=== PATIENT | female | born 1960 | race Caucasian/White ===

== ENCOUNTER 2017-09-02 22:57 | Inpatient (IN) | payer MEDICARE, MEDICAID ==
[~2017-09-02] VITALS: Ht 167.6 cm; Wt 100.5 kg
[~2017-09-02 22:57] MED LIST: ACET-784 PO; ASPI-825 PO; BACL10TA PO; BISA10SU61 PR; CLOP75 PO; FEP PR; INSLAN SQ; LISI10TA PO; MAGN800O PO; METO25 PO; SIMV40TA5 PO; VICOT PO
[2017-09-02 23:23] LABS: GLUCOSE,POINT OF CARE 128 MG/DL (70-110)
[2017-09-02] MEDS ORDERED: ALBU2TAB42 PO (23:23)
[2017-09-02] MEDS ORDERED: GABA-529 PO (23:23)
[2017-09-02] MEDS ORDERED: HYDR25TA84 PO (23:23)
[2017-09-02] MEDS ORDERED: AMLO-511 PO (23:23)
[2017-09-02] MEDS ORDERED: PHOSLOC PO (23:23)
[2017-09-02] MEDS ORDERED: LINA72CA PO (23:23)
[2017-09-02] MEDS ORDERED: LEVO75 PO (23:23)
[2017-09-02] MEDS ORDERED: AMIO200T44 PO (23:23)
[2017-09-02] MEDS ORDERED: CARV3 PO (23:23)
[2017-09-02] MEDS ORDERED: ATOR40TA28 PO (23:23)
[2017-09-02] MEDS ORDERED: MINO2.5 PO (23:30)
[2017-09-02] MEDS ORDERED: OMEP20 PO (23:30)
[2017-09-02] MEDS ORDERED: LUBI24CA2 PO (23:30)
[2017-09-02] MEDS ORDERED: NITR.4 SL (23:30)
[2017-09-02] MEDS ORDERED: MECL12.585 PO (23:30)
[2017-09-02] MEDS ORDERED: SEVEC800 PO (23:30)
[2017-09-02] MEDS ORDERED: HYDR-305 PO (23:30)
[2017-09-02] MEDS ORDERED: SENN8.6T52 PO (23:30)
[2017-09-02] MEDS ORDERED: NIFE30TA5 PO (23:30)
[2017-09-02] MEDS ORDERED: FOLI0.8T2 PO (23:30)
[2017-09-02] MEDS ORDERED: TRAM50TA4 PO (23:30)
[2017-09-02 23:37] LABS: BASOPHILS % (AUTO) 0.4 % (0.0-2.0); EOSINOPHILS % (AUTO) 0.9 % (1.0-6.0); HEMATOCRIT 29.6 % (36-46); HEMOGLOBIN 9.9 g/dL (12.0-16.0); LYMPHOCYTES # (AUTO) 1.3 K/uL (1.0-4.8); LYMPHOCYTES % (AUTO) 22.6 % (22.0-44.0); MEAN CORPUSCULAR HEMOGLOBIN 31.3 pg (26.0-34.0); MEAN CORPUSCULAR HGB CONC 33.4 G/dL (31.0-37.0); MEAN CORPUSCULAR VOLUME 94 fL (80-100); MONOCYTES # (AUTO) 0.4 K/uL (0.1-1.0); MONOCYTES % (AUTO) 7.8 % (2.0-9.0); NEUTROPHILS # (AUTO) 3.9 K/uL (1.8-7.7); NEUTROPHILS % (AUTO) 68.3 % (40.0-70.0); PLATELET COUNT (AUTO) 210 K/uL (150-450); RED BLOOD CELL COUNT(AUTO) 3.16 MIL/uL (4.00-5.20); RED CELL DISTRIBUTION WIDTH 14.3 % (11.5-14.5); WHITE BLOOD COUNT (AUTO) 5.7 K/uL (4.5-11.0)
[2017-09-02 23:48] LABS: CALCIUM, TOTAL 8.6 mg/dL (8.8-10.5); CREATININE 3.68 mg/dL (0.60-1.30); POTASSIUM 4.3 mmol/L (3.5-5.1)
[2017-09-02 23:54] LABS: ALBUMIN 3.1 g/dL (3.4-5.0); BILIRUBIN,TOTAL 0.3 mg/dL (0.1-1.0); TOTAL PROTEIN, SERUM 6.5 g/dL (6.4-8.2)
[2017-09-03] MEDS ORDERED: MORPHINE SULFATE 2 MG/ML SYRINGE IVP ONE
[2017-09-03] MEDS ORDERED: METOPROLOL TARTRATE 5 MG/5 ML VIAL IVP ONE
[2017-09-03] MEDS ORDERED: NITROGLYCERIN 0.4 MG SUBLINGUAL TABLET #25 SL ONE
[2017-09-03] MEDS ORDERED: NITROGLYCERIN 2% (1 GM=INCH) PACKET TP ONE
[2017-09-03] MEDS: ONDANSETRON HCL 4 MG/2 ML VIAL IVP ONE ×2 (00:34→00:38)
[2017-09-03] MEDS ORDERED: HYDROmorphone 2 MG/ML SYRINGE IVP ONE (01:30)
[2017-09-03 01:55] LABS: INR 1.1 (0.9-1.1); PROTHROMBIN TIME 11.7 SEC (9.4-11.6)
[2017-09-03] MEDS ORDERED: LORazepam 2 MG/ML VIAL IVP ONE (03:15)
[2017-09-03] MEDS ORDERED: NITROGLYCERIN 0.4 MG SUBLINGUAL TABLET #25 SL PRN (04:00)
[2017-09-03] MEDS ORDERED: ALBUTEROL SULFATE 2.5 MG/0.5 ML NEB SOLUTION NEB PRN (04:00)
[2017-09-03] MEDS ORDERED: MORPHINE SULFATE 4 MG/ML SYRINGE IVP PRN (04:00)
[2017-09-03] MEDS ORDERED: HEPARIN SODIUM,PORCINE 5,000 UNITS/ML VIAL SQ SCH (04:00)
[2017-09-03] MEDS ORDERED: ZOLPIDEM TARTRATE 5 MG TABLET PO PRN (04:00)
[2017-09-03] MEDS ORDERED: BISACODYL 10 MG RECTAL RECTAL SUPPOSITORY PR PRN (04:00)
[2017-09-03] MEDS ORDERED: IPRATROPIUM BROMIDE 0.5 MG/2.5 ML NEB SOLUTION NEB PRN (04:00)
[2017-09-03] MEDS ORDERED: MAGNESIUM HYDROXIDE SUSPENSION 30 ML UDCUP PO PRN (04:00)
[2017-09-03] MEDS ORDERED: ACETAMINOPHEN 325 MG TABLET PO PRN (04:00)
[2017-09-03] MEDS ORDERED: DEXTROSE 50%-WATER 25 GM/50 ML SYRINGE IVP PRN (04:15)
[2017-09-03] MEDS ORDERED: ASPIRIN 325 MG TABLET PO ONE (04:45)
[2017-09-03] MEDS: METOPROLOL TARTRATE 25 MG TABLET PO SCH ×4 (06:00→23:40)
[2017-09-03] MEDS: NITROGLYCERIN 2% (1 GM=INCH) PACKET TP SCH ×4 (06:18→23:40)
[2017-09-03 06:49] LABS: BASOPHILS % (AUTO) 0.6 % (0.0-2.0); EOSINOPHILS % (AUTO) 2.4 % (1.0-6.0); HEMATOCRIT 26.4 % (36-46); LYMPHOCYTES # (AUTO) 1.4 K/uL (1.0-4.8); LYMPHOCYTES % (AUTO) 27.5 % (22.0-44.0); MEAN CORPUSCULAR HEMOGLOBIN 31.8 pg (26.0-34.0); MEAN CORPUSCULAR HGB CONC 33.9 G/dL (31.0-37.0); MEAN CORPUSCULAR VOLUME 94 fL (80-100); MONOCYTES # (AUTO) 0.4 K/uL (0.1-1.0); MONOCYTES % (AUTO) 8.4 % (2.0-9.0); NEUTROPHILS # (AUTO) 3.2 K/uL (1.8-7.7); NEUTROPHILS % (AUTO) 61.1 % (40.0-70.0); PLATELET COUNT (AUTO) 187 K/uL (150-450); RED BLOOD CELL COUNT(AUTO) 2.81 MIL/uL (4.00-5.20); RED CELL DISTRIBUTION WIDTH 14.7 % (11.5-14.5); WHITE BLOOD COUNT (AUTO) 5.2 K/uL (4.5-11.0)
[2017-09-03 07:18] LABS: ANION GAP 2 mmol/L (8-16); CALCIUM, TOTAL 8.1 mg/dL (8.8-10.5); CARBON DIOXIDE 32 mmol/L (22-29); CHLORIDE 102 mmol/L (98-107); CREATINE KINASE, TOTAL 44 U/L (26-192); CREATININE 3.91 mg/dL (0.60-1.30); GLOMERULAR FILTR. RATE CALC 12 mL/min (>60); POTASSIUM 4.3 mmol/L (3.5-5.1); SODIUM SERUM 136 mmol/L (136-145); THYROID STIMULATING HORMONE 4.34 uIU/mL (0.36-3.74); UREA NITROGEN, BLOOD 28 mg/dL (7-18)
[2017-09-03 07:29] LABS: HEMOGLOBIN A1C 5.7 % (4.5-6.2)
[2017-09-03] MEDS: CALCIUM ACETATE 667 MG CAPSULE PO SCH ×2 (08:00→11:44)
[2017-09-03] MEDS: VITAMIN B COMP/VIT C/FOLIC ACID CAPSULE PO SCH (09:00)
[2017-09-03] MEDS: LISINOPRIL 20 MG TABLET PO SCH (09:00)
[2017-09-03] MEDS: SEVELAMER CARBONATE 800 MG TABLET PO SCH ×3 (09:16→17:57)
[2017-09-03] MEDS: LEVOTHYROXINE SODIUM 75 MCG TABLET PO SCH (09:16)
[2017-09-03] MEDS: AMIODARONE HCL 200 MG TABLET PO SCH (09:17)
[2017-09-03] MEDS: PANTOPRAZOLE SODIUM 40 MG/VIAL IVP SCH (09:17)
[2017-09-03] MEDS: HEPARIN SODIUM,PORCINE 5,000 UNITS/ML VIAL SQ SCH ×2 (09:17→20:47)
[2017-09-03 09:33] VITALS: BP 167/76
[2017-09-03 09:45] VITALS: BP 167/76
[2017-09-03] MEDS ORDERED: PENTETATE DTPA TC99M/MCL ISOTOPE 1 EA INJ INJ ONE (10:25)
[2017-09-03] MEDS ORDERED: MAA ALBUMIN AGGREGATED TC99M/UD<10MCL ISOTOPE 1 EA INJ INJ ONE (10:40)
[2017-09-03] MEDS: GABAPENTIN 100 MG CAPSULE PO SCH ×3 (11:05→20:45)
[2017-09-03] MEDS: LINACLOTIDE 290 MCG CAPSULE PO SCH (11:05)
[2017-09-03 11:31] VITALS: BP 150/67
[2017-09-03 14:52] LABS: CREATINE KINASE, TOTAL 51 U/L (26-192)
[2017-09-03 15:43] VITALS: BP 158/71
[2017-09-03] MEDS ORDERED: SODIUM CHLORIDE 0.9% 2,000 ML IV ONE (17:52)
[2017-09-03 20:40] VITALS: BP 147/65
[2017-09-03 20:40] LABS: GLUCOSE,POINT OF CARE 137 MG/DL (70-110)
[2017-09-03] MEDS: SENNA 187 MG TABLET PO SCH (20:46)
[2017-09-03] MEDS: ATORVASTATIN CALCIUM 40 MG TABLET PO SCH (20:47)
[2017-09-03] MEDS: MORPHINE SULFATE 2 MG/ML SYRINGE IVP PRN (20:50)
[2017-09-03 23:29] VITALS: BP 150/70
[2017-09-04] VITALS (10 sets, daily range): BP systolic 131–195; BP diastolic 71–94
[2017-09-04] MEDS: LEVOTHYROXINE SODIUM 75 MCG TABLET PO SCH (05:50)
[2017-09-04] MEDS: METOPROLOL TARTRATE 25 MG TABLET PO SCH ×4 (05:50→23:35)
[2017-09-04] MEDS: NITROGLYCERIN 2% (1 GM=INCH) PACKET TP SCH ×4 (05:50→23:32)
[2017-09-04 05:58] LABS: GLUCOSE,POINT OF CARE 123 MG/DL (70-110)
[2017-09-04 05:58] LABS: GLUCOSE,POINT OF CARE 135 MG/DL (70-110)
[2017-09-04] MEDS: LINACLOTIDE 290 MCG CAPSULE PO SCH (06:21)
[2017-09-04 06:52] LABS: BASOPHILS # (AUTO) 0.04 K/uL (0.00-0.20); EOSINOPHILS # (AUTO) 0.09 K/uL (0.00-0.70); EOSINOPHILS % (AUTO) 1.94 % (1.0-6.0); HEMATOCRIT 26.1 % (36-46); HEMOGLOBIN 8.6 g/dL (12.0-16.0); LYMPHOCYTES # (AUTO) 1.2 K/uL (1.0-4.8); LYMPHOCYTES % (AUTO) 27.4 % (22.0-44.0); MEAN CORPUSCULAR HEMOGLOBIN 31.4 pg (26.0-34.0); MEAN CORPUSCULAR HGB CONC 32.8 G/dL (31.0-37.0); MEAN CORPUSCULAR VOLUME 95 fL (80-100); MONOCYTES # (AUTO) 0.4 K/uL (0.1-1.0); MONOCYTES % (AUTO) 8.1 % (2.0-9.0); NEUTROPHILS # (AUTO) 2.7 K/uL (1.8-7.7); NEUTROPHILS % (AUTO) 61.5 % (40.0-70.0); PLATELET COUNT (AUTO) 177 K/uL (150-450); RED BLOOD CELL COUNT(AUTO) 2.73 MIL/uL (4.00-5.20); RED CELL DISTRIBUTION WIDTH 14.6 % (11.5-14.5); WHITE BLOOD COUNT (AUTO) 4.4 K/uL (4.5-11.0)
[2017-09-04 07:09] LABS: ALBUMIN 2.6 g/dL (3.4-5.0); BILIRUBIN,TOTAL 0.3 mg/dL (0.1-1.0); CALCIUM, TOTAL 8.1 mg/dL (8.8-10.5); CREATININE 2.67 mg/dL (0.60-1.30); MAGNESIUM 1.9 mg/dL (1.80-2.40); POTASSIUM 4.2 mmol/L (3.5-5.1); TOTAL PROTEIN, SERUM 6.1 g/dL (6.4-8.2)
[2017-09-04] MEDS ORDERED: SESTAMIBI TC99M/UD ISOTOPE 1 EA INJ INJ ONE ×2 (08:45→13:10)
[2017-09-04] MEDS: AMIODARONE HCL 200 MG TABLET PO SCH (09:00)
[2017-09-04] MEDS: LISINOPRIL 20 MG TABLET PO SCH (09:00)
[2017-09-04] MEDS ORDERED: AmLODIPine BESYLATE 2.5 MG TABLET PO ONE (09:00)
[2017-09-04] MEDS: HEPARIN SODIUM,PORCINE 5,000 UNITS/ML VIAL SQ SCH ×2 (09:00→20:07)
[2017-09-04] MEDS: PANTOPRAZOLE SODIUM 40 MG/VIAL IVP SCH (09:19)
[2017-09-04] MEDS: VITAMIN B COMP/VIT C/FOLIC ACID CAPSULE PO SCH (09:19)
[2017-09-04] MEDS: ASPIRIN 81 MG CHEWABLE TABLET PO SCH (09:19)
[2017-09-04] MEDS: SEVELAMER CARBONATE 800 MG TABLET PO SCH ×3 (09:19→17:06)
[2017-09-04] MEDS ORDERED: AmLODIPine BESYLATE 5 MG TABLET PO ONE (09:30)
[2017-09-04] MEDS ORDERED: REGADENOSON 0.4 MG/5 ML PF SYRINGE IVP ONE ×2 (13:04→21:20)
[2017-09-04] MEDS ORDERED: AMINOPHYLLINE 25 MG/ML 10 ML VIAL IVP ONE ×2 (13:13→13:18)
[2017-09-04] MEDS ORDERED: NITROGLYCERIN 400 MCG/SUBLINGUAL SPRAY 4.9 GM BOTTLE SL ONE ×3 (13:17→21:20)
[2017-09-04] MEDS: GABAPENTIN 100 MG CAPSULE PO SCH ×3 (14:06→20:07)
[2017-09-04 15:21] LABS: GLUCOSE,POINT OF CARE 109 MG/DL (70-110)
[2017-09-04] MEDS ORDERED: CloNIDine HCL 0.1 MG TABLET PO PRN (17:15)
[2017-09-04] MEDS: INSULIN ASPART 100 UNITS/ML SQ PRN (17:18)
[2017-09-04] MEDS: AmLODIPine BESYLATE 10 MG TABLET PO SCH (18:33)
[2017-09-04] MEDS: ATORVASTATIN CALCIUM 40 MG TABLET PO SCH (20:06)
[2017-09-04] MEDS: SENNA 187 MG TABLET PO SCH (20:06)
[2017-09-04] MEDS ORDERED: NITROGLYCERIN 2% (1 GM=INCH) PACKET TP ONE (21:20)
[2017-09-04] MEDS ORDERED: AMINOPHYLLINE 25 MG/ML 10 ML VIAL ONE (21:20)
[2017-09-05] VITALS (8 sets, daily range): BP systolic 141–169; BP diastolic 60–82
[2017-09-05] MEDS: METOPROLOL TARTRATE 25 MG TABLET PO SCH ×3 (06:00→17:54)
[2017-09-05] MEDS: NITROGLYCERIN 2% (1 GM=INCH) PACKET TP SCH ×3 (06:04→17:55)
[2017-09-05] MEDS: LINACLOTIDE 290 MCG CAPSULE PO SCH (06:04)
[2017-09-05] MEDS: LEVOTHYROXINE SODIUM 75 MCG TABLET PO SCH (06:04)
[2017-09-05 06:32] LABS: BASOPHILS % (AUTO) 0.9 % (0.0-2.0); EOSINOPHILS % (AUTO) 2.1 % (1.0-6.0); HEMATOCRIT 25.9 % (36-46); HEMOGLOBIN 8.8 g/dL (12.0-16.0); LYMPHOCYTES # (AUTO) 1.3 K/uL (1.0-4.8); LYMPHOCYTES % (AUTO) 25.9 % (22.0-44.0); MEAN CORPUSCULAR HEMOGLOBIN 32.1 pg (26.0-34.0); MEAN CORPUSCULAR VOLUME 94 fL (80-100); MONOCYTES # (AUTO) 0.4 K/uL (0.1-1.0); MONOCYTES % (AUTO) 7.1 % (2.0-9.0); NEUTROPHILS # (AUTO) 3.2 K/uL (1.8-7.7); PLATELET COUNT (AUTO) 179 K/uL (150-450); RED BLOOD CELL COUNT(AUTO) 2.75 MIL/uL (4.00-5.20); RED CELL DISTRIBUTION WIDTH 14.8 % (11.5-14.5)
[2017-09-05 07:04] LABS: ALBUMIN 2.8 g/dL (3.4-5.0); BILIRUBIN,TOTAL 0.3 mg/dL (0.1-1.0); CALCIUM, TOTAL 8.1 mg/dL (8.8-10.5); CREATININE 3.79 mg/dL (0.60-1.30); PHOSPHORUS 3.2 mg/dL (2.5-4.9); POTASSIUM 4.7 mmol/L (3.5-5.1)
[2017-09-05] MEDS: PANTOPRAZOLE SODIUM 40 MG/VIAL IVP SCH (08:10)
[2017-09-05] MEDS: SEVELAMER CARBONATE 800 MG TABLET PO SCH ×3 (08:10→17:54)
[2017-09-05] MEDS: GABAPENTIN 100 MG CAPSULE PO SCH ×3 (08:11→20:21)
[2017-09-05] MEDS: ASPIRIN 81 MG CHEWABLE TABLET PO SCH (08:11)
[2017-09-05] MEDS: AMIODARONE HCL 200 MG TABLET PO SCH (08:11)
[2017-09-05] MEDS: HEPARIN SODIUM,PORCINE 5,000 UNITS/ML VIAL SQ SCH ×2 (08:12→20:25)
[2017-09-05 11:09] LABS: GLUCOSE,POINT OF CARE 175 MG/DL (70-110)
[2017-09-05 11:09] LABS: GLUCOSE,POINT OF CARE 139 MG/DL (70-110)
[2017-09-05 15:28] LABS: GLUCOSE,POINT OF CARE 124 MG/DL (70-110)
[2017-09-05 15:28] LABS: GLUCOSE,POINT OF CARE 110 MG/DL (70-110)
[2017-09-05 15:28] LABS: GLUCOSE COMMENT 1 Received Meds; GLUCOSE,POINT OF CARE 140 MG/DL (70-110)
[2017-09-05] MEDS: VITAMIN B COMP/VIT C/FOLIC ACID CAPSULE PO SCH (16:59)
[2017-09-05] MEDS: AmLODIPine BESYLATE 10 MG TABLET PO SCH (16:59)
[2017-09-05] MEDS: LISINOPRIL 20 MG TABLET PO SCH (17:00)
[2017-09-05 18:52] LABS: GLUCOSE,POINT OF CARE 128 MG/DL (70-110)
[2017-09-05] MEDS: OXYGEN THERAPY IH SCH (20:07)
[2017-09-05] MEDS: ATORVASTATIN CALCIUM 40 MG TABLET PO SCH (20:21)
[2017-09-05] MEDS: SENNA 187 MG TABLET PO SCH (21:00)
[2017-09-05] MEDS: INSULIN ASPART 100 UNITS/ML SQ PRN (21:34)
[2017-09-06] MEDS: NITROGLYCERIN 2% (1 GM=INCH) PACKET TP SCH ×3 (00:54→11:36)
[2017-09-06 04:35] VITALS: BP 140/69
[2017-09-06] MEDS: METOPROLOL TARTRATE 25 MG TABLET PO SCH ×3 (06:00→11:36)
[2017-09-06] MEDS: LINACLOTIDE 290 MCG CAPSULE PO SCH (06:45)
[2017-09-06] MEDS: LEVOTHYROXINE SODIUM 75 MCG TABLET PO SCH (06:45)
[2017-09-06 07:11] VITALS: BP 145/66
[2017-09-06 07:31] LABS: BASOPHILS # (AUTO) 0.03 K/uL (0.00-0.20); BASOPHILS % (AUTO) 0.7 % (0.0-2.0); EOSINOPHILS % (AUTO) 2.07 % (1.0-6.0); HEMATOCRIT 25.3 % (36-46); HEMOGLOBIN 8.5 g/dL (12.0-16.0); LYMPHOCYTES # (AUTO) 1.1 K/uL (1.0-4.8); MEAN CORPUSCULAR HEMOGLOBIN 31.4 pg (26.0-34.0); MEAN CORPUSCULAR HGB CONC 33.6 G/dL (31.0-37.0); MEAN CORPUSCULAR VOLUME 93 fL (80-100); MONOCYTES # (AUTO) 0.2 K/uL (0.1-1.0); MONOCYTES % (AUTO) 4.7 % (2.0-9.0); NEUTROPHILS # (AUTO) 3.4 K/uL (1.8-7.7); NEUTROPHILS % (AUTO) 70.5 % (40.0-70.0); PLATELET COUNT (AUTO) 133 K/uL (150-450); RED BLOOD CELL COUNT(AUTO) 2.71 MIL/uL (4.00-5.20); RED CELL DISTRIBUTION WIDTH 14.4 % (11.5-14.5); WHITE BLOOD COUNT (AUTO) 4.9 K/uL (4.5-11.0)
[2017-09-06 07:39] LABS: CALCIUM, TOTAL 8.2 mg/dL (8.8-10.5); CREATININE 3.17 mg/dL (0.60-1.30); POTASSIUM 4.4 mmol/L (3.5-5.1)
[2017-09-06 07:48] LABS: GLUCOSE,POINT OF CARE 95 MG/DL (70-110)
[2017-09-06 07:48] LABS: GLUCOSE COMMENT 1 Received Meds; GLUCOSE,POINT OF CARE 209 MG/DL (70-110)
[2017-09-06] MEDS: SEVELAMER CARBONATE 800 MG TABLET PO SCH ×2 (08:02→11:36)
[2017-09-06] MEDS: OXYGEN THERAPY IH SCH (08:02)
[2017-09-06] MEDS: ASPIRIN 81 MG CHEWABLE TABLET PO SCH (08:03)
[2017-09-06] MEDS: AMIODARONE HCL 200 MG TABLET PO SCH (08:03)
[2017-09-06] MEDS: VITAMIN B COMP/VIT C/FOLIC ACID CAPSULE PO SCH (08:03)
[2017-09-06] MEDS: PANTOPRAZOLE SODIUM 40 MG/VIAL IVP SCH (08:03)
[2017-09-06] MEDS: AmLODIPine BESYLATE 10 MG TABLET PO SCH (08:03)
[2017-09-06] MEDS: GABAPENTIN 100 MG CAPSULE PO SCH (08:03)
[2017-09-06] MEDS: HEPARIN SODIUM,PORCINE 5,000 UNITS/ML VIAL SQ SCH (08:05)
[2017-09-06] MEDS: LISINOPRIL 20 MG TABLET PO SCH (08:05)
[2017-09-06] MEDS: MORPHINE SULFATE 2 MG/ML SYRINGE IVP PRN (10:23)
[2017-09-06 10:27] VITALS: BP 142/60
[2017-09-06] MEDS ORDERED: ZOLP5 PO (10:44)
[2017-09-06] MEDS ORDERED: EPOETIN ALFA 10,000 UNITS/ML VIAL SQ SCH (11:00)
[2017-09-06 11:27] VITALS: BP 156/74
[2017-09-06] MEDS: INSULIN ASPART 100 UNITS/ML SQ PRN (11:38)
[2017-09-06] MEDS ORDERED: HYDROCODONE/ACETAMINOPHEN 10-325 MG TABLET PO ONE (12:00)
[2017-09-06] MEDS ORDERED: HEPARIN SODIUM,PORCINE 1,000 UNITS/ML VIAL IVP ONE (13:29)
[2017-09-06] MEDS ORDERED: LIDOCAINE HCL/PF 1% 2 ML VIAL IM ONE (13:29)
[2017-09-06 19:31] LABS: GLUCOSE COMMENT 1 Received Meds; GLUCOSE,POINT OF CARE 166 MG/DL (70-110)
== END 2017-09-06 13:30 | DRG 302 ==
LOC: EMS 22:58 → 5N 09-03 05:04
PROVIDERS: ADMIT Internal Medicine Geriatric Medicine; ATTEND Internal Medicine Geriatric Medicine
DX: I25.119 Atherosclerotic heart disease of native coronary artery with unspecified angina pectoris (principal); N18.6 End stage renal disease; I13.2 Hypertensive heart and chronic kidney disease with heart failure and with stage 5 chronic kidney disease, or end stage renal disease; E11.21 Type 2 diabetes mellitus with diabetic nephropathy; I48.91 Unspecified atrial fibrillation; D32.9 Benign neoplasm of meninges, unspecified; E86.0 Dehydration; D63.1 Anemia in chronic kidney disease; I50.32 Chronic diastolic (congestive) heart failure; R07.9 Chest pain, unspecified; E11.22 Type 2 diabetes mellitus with diabetic chronic kidney disease; R07.81 Pleurodynia; E03.9 Hypothyroidism, unspecified; E78.00 Pure hypercholesterolemia, unspecified; E78.5 Hyperlipidemia, unspecified; I25.5 Ischemic cardiomyopathy; J44.9 Chronic obstructive pulmonary disease, unspecified; K21.9 Gastro-esophageal reflux disease without esophagitis; Z79.899 Other long term (current) drug therapy; Z86.011 Personal history of benign neoplasm of the brain; Z86.73 Personal history of transient ischemic attack (TIA), and cerebral infarction without residual deficits; Z95.1 Presence of aortocoronary bypass graft; Z99.2 Dependence on renal dialysis; I25.2 Old myocardial infarction; Z88.8 Allergy status to other drugs, medicaments and biological substances; Z91.041 Radiographic dye allergy status
CPT/HCPCS: 78452; 78582; 82306; 82607; 82746; 82962; 83036; 83735; 84100; 84439; 84443; 85379; 87081; 87340; 90935; 93005; 93017; 93306; 93880; 96374; 96375; 99285; A9500; A9539; A9540; C9113; J0280; J0885; J1170; J1644; J2060; J2270; J2405; J2785; J3490; J7030